=== PATIENT | female | born 1980 | race Caucasian/White ===

== ENCOUNTER 2021-10-06 21:09 | Inpatient (IN) | payer OTHER ==
[2021-10-06] MEDS ORDERED: Albuterol 0.083% 2.5 MG/3 ML Neb Soln NEB ONE (21:35)
[2021-10-06] MEDS ORDERED: Sodium Chloride 0.9% 10 ML Syringe FLUSH PRN (21:35)
[2021-10-06] MEDS ORDERED: Ketorolac 30 MG/ML SDV IVPUSH ONE (21:36)
[2021-10-06] MEDS ORDERED: Benzonatate 100 MG Cap PO ONE (21:37)
[2021-10-06 22:35] LABS: CORONAVIRUS COVID-19 NAA NEGATIVE (NEGATIVE)
[2021-10-06] MEDS ORDERED: Albuterol/Ipratropium 3.0-0.5 MG/3 ML Neb Soln NEB ONE (23:03)
[2021-10-07] MEDS ORDERED: cefTRIAXone 2 GM in Sodium Chloride 0.9% 100 ML IV STA (01:11)
[2021-10-07] MEDS ORDERED: Azithromycin 500 MG in Sodium Chloride 0.9% 250 ML IV STA (01:12)
[2021-10-07] MEDS ORDERED: Potassium Chloride 20 MEQ Tab.ER PO ONE (01:12)
[2021-10-07] MEDS ORDERED: Albuterol/Ipratropium 3.0-0.5 MG/3 ML Neb Soln ONE (02:39)
[2021-10-07] MEDS: Albuterol/Ipratropium 3.0-0.5 MG/3 ML Neb Soln NEB PRN ×2 (02:55→08:45)
[2021-10-07] MEDS ORDERED: Sodium Chloride 0.9% 1,000 ML IV SCH (04:30)
[2021-10-07] MEDS ORDERED: Sodium Chloride 0.9% 500 ML IV ONE (05:14)
[2021-10-07] MEDS ORDERED: Piperacillin/Tazobactam 4.5 GM in Sodium Chloride 0.9% 100 ML IV ONE (05:21)
[2021-10-07] MEDS ORDERED: LORazepam 2 MG/ML SDV IVPUSH ONE (05:22)
[2021-10-07] MEDS ORDERED: diphenhydrAMINE 50 MG/ML SDV IVPUSH ONE (07:09)
[2021-10-07] MEDS ORDERED: methylPREDNISolone Sodium Succinate 125 MG/2 ML SDV IVPUSH ONE (07:11)
[2021-10-07] MEDS ORDERED: Sodium Chloride 0.9% 10 ML Syringe FLUSH PRN (07:41)
[2021-10-07] MEDS ORDERED: Iopamidol 755 Mg/ML 100 ML Bottle IVPUSH ONE (07:41)
[2021-10-07] MEDS ORDERED: Sodium Chloride 0.9% 100 ML IV SCH (07:45)
[2021-10-07] MEDS ORDERED: guaiFENesin/Dextromethorphan 100-10 MG/5 ML Soln 5 ML Cup PO ONE (09:30)
== END 2021-10-07 09:49 | DRG 871 ==
LOC: JD.ED 21:09 → JD.MS 10-07 01:53
PROVIDERS: ADMIT Hospitalist; ATTEND Hospitalist
DX: A41.9 Sepsis, unspecified organism (principal); R00.8 Other abnormalities of heart beat; J18.9 Pneumonia, unspecified organism; Z79.899 Other long term (current) drug therapy; J96.01 Acute respiratory failure with hypoxia; R04.2 Hemoptysis; R65.20 Severe sepsis without septic shock; I49.3 Ventricular premature depolarization; Z20.822 Contact with and (suspected) exposure to COVID-19; E87.6 Hypokalemia; R79.89 Other specified abnormal findings of blood chemistry
CPT/HCPCS: 0240U; 36415; 36600; 71045; 71275; 80053; 82803; 83605; 83735; 83880; 84145; 85007; 85027; 85379; 85384; 85730; 86140; 86738; 86850; 86900; 86901; 87040; 93005; 94640; 94761; 96365; 96375; 99285-25; A9270-GY; J0456; J0696; J1200; J1885; J2060; J2543; J2930; J3490; J7030; J7050; J7620-GY; Q9967